=== PATIENT | female | born 1975 | race Caucasian/White ===

== ENCOUNTER 2022-11-04 02:52 | Emergency (ER) | payer SELFPAY ==
[~2022-11-04] VITALS: Ht 160 cm; Wt 58.1 kg
[2022-11-04 03:54] LABS: HEMATOCRIT 33.3 % (31.2-41.9); MEAN CORPUSCULAR HEMOGLOBIN 28.2 uug (24.7-32.8); MEAN CORPUSCULAR VOLUME 84.6 fL (75.5-95.3); PLATELET COUNT (AUTO) 180 K/uL (179-408)
[2022-11-04] MEDS ORDERED: MAG HYDROX/AL HYDROX/SIMETH 30 ML LIQUID UDC PO ONE (04:00)
[2022-11-04] MEDS ORDERED: MAG HYDROX/AL HYDROX/SIMETH 30 ML LIQUID UDC ONE (04:02)
[2022-11-04 04:10] LABS: CREATININE 0.7 mg/dL (0.6-1.3)
[2022-11-04 04:26] LABS: BILIRUBIN,TOTAL 0.3 mg/dL (0.2-1.0); TOTAL PROTEIN, SERUM 7.3 g/dL (6.4-8.2)
[2022-11-04] MEDS ORDERED: PANTOPRAZOLE SODIUM 40 MG TABLET.DR PO ONE ×2 (04:45→04:50)
[2022-11-04] MEDS ORDERED: POTASSIUM CHLORIDE 20 MEQ TAB.PRT.SR PO ONE (04:45)
[2022-11-04] MEDS ORDERED: POTASSIUM CHLORIDE 20 MEQ TAB.PRT.SR ONE (04:50)
[2022-11-04] MEDS ORDERED: LORA0.5T48 PO (04:53)
[2022-11-04 07:38] VITALS: BP 107/69; TEMP 98; O2SAT 100
== END 2022-11-04 07:30 | disposition home or self-care (01) ==
LOC: ER 03:05
DX: F41.9 Anxiety disorder, unspecified (principal); R42 Dizziness and giddiness; G47.00 Insomnia, unspecified; R10.13 Epigastric pain; G43.909 Migraine, unspecified, not intractable, without status migrainosus; Z88.8 Allergy status to other drugs, medicaments and biological substances
CPT/HCPCS: 36415; 84484; 85025; 93005; A4663